=== PATIENT | male | born 1985 | race Caucasian/White ===

== ENCOUNTER 2024-02-19 23:17 | Emergency (ER) | payer MEDICAID, SELFPAY ==
[2024-02-19 23:18] VITALS: BP 154/94; PULSE 98; RESP 15; TEMP 36.4; O2SAT 98
--- NOTE | 2024-02-19 23:25 | EX.ED.VIS.PS ---
HPI HPI - Psych History of Present Illness Chief Complaint: Mental Health PFSH PFSH Allergy/AdvReac Type Severity Reaction Status Date / Time No Known Allergies Allergy Verified 02/19/24 23:20 Social History Smoking Status: Current every day smoker tobacco type: cigarettes EXAM Physical Exam Const Vital Signs: 02/19/24 23:18 02/20/24 01:42 Temperature 97.6 F L Temperature Source Temporal Pulse Rate 98 83 Respiratory Rate 15 16 Blood Pressure 154/94 H 115/77 Blood Pressure Mean 114 89 Pulse Ox 98 94 Oxygen Delivery Method Room Air Room Air [facility] Narrative Medical decision making narrative: HISTORY OF PRESENT ILLNESS: 38-year-old male presents with concern for expressed suicidality. He states he was saying things he did not mean. Denies any suicide ideation or homicidal ideation. Denies any physical complaints. Endorses drinking tonight. States he drink approximately 20 alcoholic beverages for approximately 8 AM until 11 PM on 02/19/2024. States he initially mentioned wanting to hurt himself but no longer feels this way. Denies any plan. Denies any auditory or visual hallucinations. Denies any prior suicidal attempts. Denies using any other drugs. Denies any physical complaints at this time. REVIEW OF SYSTEMS: Pertinent positives: None Pertinent negatives: C suicidal ideation, homicidal nation, auditory visual hallucinations PHYSICAL EXAM: Nursing triage notes reviewed, Vital signs reviewed Constitutional: please see [facility] HENT: MMM Eyes: Pupils equal round and reactive to light, Extraocular muscles intact Neck: No stridor, no JVD, full neck ROM, no ligature mccall Lungs: Clear to auscultation, No wheezing or rales. No increased work of breathing, no conversational dyspnea, no accessory muscle use, no nasal flaring. No respiratory distress noted Heart: Regular rate and rhythm, No murmurs, No rubs and No gallops, 2+ distal pulses (radial, femoral, posterior tibial) in all extremities Abdomen: Soft, there is no tenderness, rigidity, rebound or guarding, no obvious peritoneal signs, no palpable pulsatile abdominal masses, no auscultated abdominal bruit : No CVAT Extremities: No edema Neuro: No focal neurological deficits, cranial nerves II through XII intact, 5/5 strength in all extremities. Intact sensation to light touch in all extremities, 2+ reflexes bilateral patella tendons. Normal gait. No ataxia. Skin: No rash or lesions noted Psych: Normal affect, normal mood, goal-directed thought process, the patient does not appear to be responding to internal stimuli MEDICAL DECISION MAKING: Chief Complaint: Suicidality External records reviewed: No recent ED visits, no documented psychiatric encounters Factors affecting care: none Social determinants of health: none History obtained from others: police Consults: none MDM Narrative: The patient was hemodynamically stable, afebrile and nontoxic-appearing. Exam unremarkable. Patient was monitored in the ED. He denies suicidality on multiple different occasions. He was monitored for clinical sobriety. We attempted to arrange a sober ride home. Given patient denied suicidal ideation had no signs of psychosis. Was goal and future oriented. Contracted safety and no specific plan I do not feel the need to pinks up the patient or hold him against his will. Not feel the need to obtain psychiatric evaluation at this time. Patient was observed in the ED for approximately 6 and half hours. He is clinically sober. Patient able to walk with a stable non-ataxic gait. He continued to deny suicidal ideation. Is appropriate for discharge home. The patient and/or family, caregivers express understanding. The patient and/or family, caregivers agrees with the plan. Shared decision making: I will have a discussion with the patient and or visitors regarding risk/benefits of further testing or admission. They will be made aware of of the risk/benefits inherent in this decision they will be given the opportunity to voice understanding. Total critical care time today provided was at least 0 minutes. This excludes separately billable procedures. Critical care time (if documented) is secondary to the patient having high probability of clinically significant/life threatening deterioration in the patient's condition which required my urgent intervention. Impression: 1. Suicidal ideation 2. Intoxication with alcohol Dispo: discharge home This note was generated with [employer] dictation software. It may contain incorrect words, spelling, and punctuation that were not noted in review of the chart prior to signing. Discharge Plan Triage Chief Complaint: Mental Health ED Provider: Trung Winkler Dx/Rx/DC Orders Clinical Impression: Suicidal ideation Instructions: Suicide Warning What To Do Primary Care Provider: NOT,DEFINED Referrals: Nacho Beyer MD [Med Staff - Museum Assistant] - Activity Restrictions/Additional Instructions: Thank you for trusting us with your care today! Please take Tylenol (2 pills, 650 mg), ibuprofen (2 pills, 400 mg) every 6 hours as needed for pain and fever control. Please return to the emergency department if your symptoms change or worsen. Please follow with your primary care physician and/or local addiction resources for further outpatient evaluation and management. Disposition Disposition: Home, Self Care
[2024-02-19 23:32] VITALS: BMI 18.6
[2024-02-20 01:42] VITALS: BP 115/77; PULSE 83; RESP 16; O2SAT 94
[2024-02-20 05:49] VITALS: BP 128/85; PULSE 85; RESP 16; TEMP 36.8; O2SAT 96
== END 2024-02-20 05:49 | disposition home or self-care (01) ==
PROVIDERS: Emergency Provider Emergency Medicine; Visit Provider Emergency Medicine
DX: R45.851 Suicidal ideations (principal); F10.129 Alcohol abuse with intoxication, unspecified; F17.210 Nicotine dependence, cigarettes, uncomplicated
CPT/HCPCS: 99284